=== PATIENT | female | born 1995 | race Caucasian/White ===

== ENCOUNTER 2016-09-11 18:15 | Emergency (ER) | payer MEDICAID ==
[~2016-09-11] VITALS: Ht 157.5 cm; Wt 56.5 kg
[~2016-09-11 18:15] MED LIST: MACR100C PO; POTA-243 PO; TUMS500C CHEW
[2016-09-11 18:17] VITALS: BP 134/68; PULSE 89; RESP 16; TEMP 98.6; O2SAT 99
--- NOTE | 2016-09-11 18:35 | PD ---
HPI Chief Complaint: Complaint Time Seen by Provider: 18:20 Travel History International Travel<30 days: No Contact w/Intl Traveler<30days: No Traveled to known affect area: No History of Present Illness HPI 21-year-old female 012 early confirmed by urine test as well as quantitative beta hCG per her history, menstrual period August 03, presents for evaluation of urinary hesitancy and increased urinary frequency. For the past 5 months she has had urinary frequency, vesical tenesmus issues. She reports that after urinating she still feels like she needs to urinate even when she does not have to. She is in the process of having this worked up as an outpatient when she lost her insurance. That the sensation is somewhat worse since yesterday and this prompted evaluation. She denies any dysuria, vaginal bleeding or discharge, hematuria, nausea or vomiting, flank pain, fevers or chills. She reports that she is currently in the process of establishing care with an COPY MACHINE OPERATOR for her , first appointment on September 19. No other complaints. [facility] Past Medical History Anxiety: Yes ?: LMP: 08/03/16 Social History Alcohol Use: No Tobacco Use: No (smokes approximately 5-10 cigarettes per day) Substance Use: No Allergies-Medications (Allergen,Severity, Reaction): Coded Allergies: Penicillin (Verified Allergy, Severe, throat swelling, dizziness, 09/11/16) Reported Meds & Prescriptions Reported Meds & Active Scripts Active Macrobid (Nitrofurantoin Monohydrate Macrocrystals) 100 Mg Capsule 100 Mg PO BID 7 Days Reported Gummies (Pwf054/FA/Omega3/Dha/Fish Oil) 1 Each Tab.chew 1 Tab PO DAILY Review of Systems Except as stated in HPI: all other systems reviewed are Neg Physical Exam Narrative GENERAL: Well developed well-nourished female in no acute distress SKIN: Warm and dry. HEAD: Atraumatic. Normocephalic. EYES: Pupils equal and round. No scleral icterus. No injection or drainage. ENT: No nasal bleeding or discharge. Mucous membranes pink and moist. NECK: Trachea midline. No JVD. CARDIOVASCULAR: Regular rate and rhythm. No murmur appreciated. RESPIRATORY: No accessory muscle use. Clear to auscultation. Breath sounds equal bilaterally. GASTROINTESTINAL: Abdomen soft, non-tender, nondistended. Hepatic and splenic margins not palpable. No CVA tenderness. MUSCULOSKELETAL: No obvious deformities. No edema. NEUROLOGICAL: Awake and alert. No obvious cranial nerve deficits. Motor grossly within normal limits. Normal speech. PSYCHIATRIC: Appropriate mood and affect; insight and judgment normal. Data Data Last Documented VS Vital Signs Date Time Temp Pulse Resp B/P Pulse Ox O2 Delivery O2 Flow Rate FiO2 09/11/16 18:17 98.6 89 16 134/68 99 Orders Urinalysis - C+S If Indicated (09/11/16 18:30) Labs Laboratory Tests Test 09/11/16 18:45 Urine Color LIGHT-YELLOW Urine Turbidity CLEAR Urine pH 7.0 Urine Specific [place] 1.003 Urine Protein NEG mg/dL Urine Glucose (UA) NEG mg/dL Urine Ketones NEG mg/dL Urine Occult Blood NEG Urine Nitrite NEG Urine Bilirubin NEG Urine Urobilinogen LESS THAN 2.0 MG/DL Urine Leukocyte Esterase NEG Urine RBC LESS THAN 1 /hpf Urine WBC 1 /hpf Urine Squamous Epithelial 2 /hpf Cells Urine Bacteria RARE /hpf Microscopic Urinalysis Comment CULT NOT INDICATED MDM Medical Decision Making Medical Screen Exam Complete: Yes Emergency Medical Condition: Yes Medical Record Reviewed: Yes Differential Diagnosis Cystitis, interstitial cystitis, overactive bladder syndrome, early intrauterine , bladder outlet obstruction, bladder spasm Narrative Course 21-year-old female in early presents with 5 months of urinary frequency and vesical tenesmus, worse since yesterday. Her abdomen is soft and nontender. She has no ectopic , miscarriage. She appears well. She seems to have some issue with chronic urinary hesitancy she can be further worked up on an outpatient basis through a urologist. Plan today is for urinalysis to assess for infectious process. As this is negative for infectious process, does reveal rare bacteria. Therefore the patient will be treated for bacteriuria in . Diagnosis Primary Impression: Vesical tenesmus Additional Impression: Asymptomatic bacteriuria during Referrals: Optical Element Coater Urologist Additional Instructions: Medication as prescribed. Follow-up with a urologist, COPY MACHINE OPERATOR. Return for any emergent medical conditions. Med/Other Pt SpecificInfo: Prescription(s) given Scripts Nitrofurantoin Monohydrate Macrocrystals (Macrobid)100 Mg [id number] Mg PO BID 7 Days Ref 0 Prov:Wolf Thomason MD 09/11/16 Disposition: 01 DISCHARGE HOME Condition: Stable Greg,Samson P. PA Sep 11, 2016 18:35
[2016-09-11] MEDS ORDERED: PNV11TAB PO (18:36)
[2016-09-11 19:02] LABS: BACTERIA, URINE RARE /hpf; BLOOD, URINE NEG (NEG); COMMENT (UR) CULT NOT INDICATED; CULTURE IF INDICATED CULT NOT INDICATED; GLUCOSE,URINE NEG (NEG); KETONE, URINE NEG (NEG); NITRITE,URINE NEG (NEG); SQUAMOUS EPITHELIAL CELL URINE 2 /hpf (0-5); URINE COLOR LIGHT-YELLOW (YELLW/STRAW)
[2016-09-11] MEDS ORDERED: MACR100C2 PO (19:21)
[2016-09-11 19:46] VITALS: BP 124/58; PULSE 73; RESP 18; O2SAT 100
== END 2016-09-11 19:45 | disposition home or self-care (01) ==
LOC: NEPD 18:15
DX: R30.1 Vesical tenesmus (principal); R82.71 Bacteriuria; O26.91 Pregnancy related conditions, unspecified, first trimester; Z3A.01 Less than 8 weeks gestation of pregnancy; Z72.0 Tobacco use; Z88.0 Allergy status to penicillin
CPT/HCPCS: 81001; 99283

== ENCOUNTER 2016-11-12 15:22 | Emergency (ER) | payer MEDICAID, OTHER ==
[~2016-11-12] VITALS: Ht 157.5 cm; Wt 55.0 kg
[~2016-11-12 15:22] MED LIST changes: -MACR100C PO; +MACR100C2 PO; +PNV11TAB PO; -POTA-243 PO; -TUMS500C CHEW
[2016-11-12 15:24] VITALS: BP 133/74; PULSE 92; RESP 20; TEMP 98.3; O2SAT 95
--- NOTE | 2016-11-12 15:47 | PD ---
HPI Chief Complaint: Drawer In [place]obby Loom Problem/Complaint Time Seen by Provider: 15:46 Travel History International Travel<30 days: No Contact w/Intl Traveler<30days: No Traveled to known affect area: No History of Present Illness HPI 21-year-old female, 15 weeks , presents to the emergency Department with complaint of vaginal irritation and bright yellow discharge for about 1 week. Denies vaginal itching, or lesions. Reports vaginal odor. Denies vaginal bleeding, abdominal pain, or cramping. Reports urinary hesitancy. Denies dysuria, urgency, or frequency. Denies fever, vomiting. Symptoms are mild in severity. Has not taken any medications or tried any treatments to alleviate her symptoms. Denies exposure to STD. Allergies to penicillin. Dr. Granados is hardboard panel printer. Has no medical complaints. No other modifying factors or symptoms. PFSH Past Medical History Anxiety: Yes Diminished Hearing: No Psychiatric: Yes ?: : 4 Para: 2 : 1 Social History Alcohol Use: No Tobacco Use: No (quit 2 years ago) Substance Use: No Allergies-Medications (Allergen,Severity, Reaction): Coded Allergies: Penicillin (Verified Allergy, Severe, throat swelling, dizziness, 11/12/16) Reported Meds & Prescriptions Reported Meds & Active Scripts Active Reported Gummies (Kbn511/FA/Omega3/Dha/Fish Oil) 1 Each Tab.chew 1 Tab PO DAILY Review of Systems Except as stated in HPI: all other systems reviewed are Neg Physical Exam Narrative GENERAL: Well-nourished, well-developed female female patient, in no acute distress; afebrile, nontoxic-appearing SKIN: Warm and dry. HEAD: Atraumatic. Normocephalic. EYES: Pupils equal and round. No scleral icterus. No injection or drainage. ENT: Mucous membranes pink and moist. NECK: Trachea midline. No lymphadenopathy. CARDIOVASCULAR: Regular rate and rhythm. No murmur appreciated. RESPIRATORY: No accessory muscle use. Clear to auscultation. Breath sounds equal bilaterally. GASTROINTESTINAL: Abdomen soft, non-tender, nondistended. Bilateral pelvic region nontender to palpation. Hepatic and splenic margins not palpable. No guarding, rigidity, rebound tenderness. PELVIC: Exam done in the presence of a nurse. Speculum exam reveals edematous and erythematous cervix with light yellow, mucopurulent discharge. Bimanual exam reveals no palpable masses or adnexa tenderness, no uterine tenderness. No cervical motion tenderness. BACK: No CVA tenderness. MUSCULOSKELETAL: No obvious deformities. No clubbing. No cyanosis. No edema. NEUROLOGICAL: Awake and alert. No obvious cranial nerve deficits. Motor grossly within normal limits. Normal speech. PSYCHIATRIC: Appropriate mood and affect; insight and judgment normal. Data Data Last Documented VS Vital Signs Date Time Temp Pulse Resp B/P Pulse Ox O2 Delivery O2 Flow Rate FiO2 11/12/16 15:24 98.3 92 20 133/74 95 Room Air Orders Gc And Chlamydia Pcr (11/12/16 15:48) Wet Prep Profile (11/12/16 15:48) Urinalysis - C+S If Indicated (11/12/16 15:48) Heart Tones (11/12/16 18:14) Azithromycin Powd Pack (Zithromax Powd P (11/12/16 18:15) Ceftriaxone Inj (Rocephin Inj) (11/12/16 18:15) Lidocaine 1% Inj (50 Ml) (Xylocaine 1% I (11/12/16 18:15) Labs Laboratory Tests Test 11/12/16 16:23 Urine Color COLORLESS Urine Turbidity CLEAR Urine pH 7.0 Urine Specific [place] 1.001 Urine Protein NEG mg/dL Urine Glucose (UA) NEG mg/dL Urine Ketones NEG mg/dL Urine Occult Blood NEG Urine Nitrite NEG Urine Bilirubin NEG Urine Urobilinogen LESS THAN 2.0 MG/DL Urine Leukocyte Esterase NEG Urine RBC LESS THAN 1 /hpf Urine WBC LESS THAN 1 /hpf Microscopic Urinalysis Comment CULT NOT INDICATED Clue Cells (Wet Prep) NONE SEEN Vaginal Trichomonas (Wet Prep) NONE SEEN Vaginal Yeast (Wet Prep) NONE SEEN MDM Medical Decision Making Medical Screen Exam Complete: Yes Emergency Medical Condition: Yes Medical Record Reviewed: Yes Differential Diagnosis Bacterial vaginosis, cervicitis, chlamydia, gonorrhea, vaginal yeast, UTI, cystitis Narrative Course 21-year-old female, 15 weeks , with vaginal discharge, vaginal odor, and urinary hesitancy. Denies abdominal pain, vaginal bleeding. Patient is afebrile and nontoxic appearing. She denies fever, vomiting. Dr. Granados's hardboard panel printer. 1810: Urinalysis negative. No clue cells, vaginal yeast, trichomonas seen. Chlamydia and gonorrhea pending. Patient empirically treated with azithromycin and Rocephin in the emergency department. Instructed patient to follow up with hardboard panel printer. Instructed patient to follow up with primary care provider. Patient verbalizes understanding and agreement with treatment plan. Patient is medically cleared and stable for discharge. Discussed reasons to return to the emergency department. Patient agrees with treatment plan. The patients vital signs are stable and the patient is stable for outpatient follow-up and treatment. Patient discharged home, stable and in no acute distress. Diagnosis Primary Impression: Cervicitis Referrals: [employer] Finisher Primary Care Physician Patient Instructions: Cervicitis (ED), General Instructions Additional Instructions: Avoid aggravating activity Follow-up with hardboard panel printer Follow-up with primary care provider Return to the emergency department immediately with worsening of symptoms Med/Other Pt SpecificInfo: No Meds Exist/No RX given Disposition: DISCHARGE HOME Condition: Stable Trisha Ventura Nov 12, 2016 15:47
[2016-11-12 16:34] LABS: BLOOD, URINE NEG (NEG); GLUCOSE,URINE NEG (NEG); KETONE, URINE NEG (NEG); NITRITE,URINE NEG (NEG); URINE COLOR COLORLESS (YELLW/STRAW)
[2016-11-12 16:36] LABS: COMMENT (UR) CULT NOT INDICATED; CULTURE IF INDICATED CULT NOT INDICATED
[2016-11-12] MEDS ORDERED: AZITHROMYCIN PWD FOR SUSP 1 GM PACKET PO ONE (18:15)
[2016-11-12] MEDS ORDERED: LIDOCAINE HCL 1% 50 ML VIAL IM ONE (18:15)
[2016-11-12] MEDS ORDERED: cefTRIAXone 250 MG VIAL IM ONE (18:15)
[2016-11-12 19:21] LABS: CHLAMYDIA PCR NOT DETECTED (NOT DETECT); NEISSERIA PCR NOT DETECTED (NOT DETECT)
[2017-01-04] MEDS ORDERED: TUMS500C CHEW (10:17)
[2017-01-04] MEDS ORDERED: MACR100C2 PO (10:45)
== END 2016-11-12 19:05 | disposition home or self-care (01) ==
LOC: NEPD 15:22
DX: O23.512 Infections of cervix in pregnancy, second trimester (principal); N72 Inflammatory disease of cervix uteri; O99.342 Other mental disorders complicating pregnancy, second trimester; F41.9 Anxiety disorder, unspecified; Z87.891 Personal history of nicotine dependence; Z88.0 Allergy status to penicillin; Z3A.15 15 weeks gestation of pregnancy
CPT/HCPCS: 81001; 87210; 87491; 87591; 96372; 99284; J0696

== ENCOUNTER 2017-05-21 13:14 | Emergency (ER) | payer MEDICAID ==
[~2017-05-21] VITALS: Ht 157.5 cm; Wt 54.5 kg
[~2017-05-21 13:14] MED LIST changes: +TUMS500C CHEW
[2017-05-21 13:16] VITALS: BP 137/91; PULSE 98; RESP 15; TEMP 98.4; O2SAT 98
[2017-05-21] MEDS ORDERED: PANTOPRAZOLE SOD 40 MG DELAYED RELEASE TAB PO ONE (14:00)
--- NOTE | 2017-05-21 14:01 | PD ---
HPI Chief Complaint: ENT Complaint Time Seen by Provider: 13:33 Travel History International Travel<30 days: No Contact w/Intl Traveler<30days: No Traveled to known affect area: No History of Present Illness HPI 22-year-old female who is 3 weeks with a 1-1/2 and a 2-1/2- year-old as well at home. She presents emergency department with sore throat and fullness in the base of her throat for the past 4 days. Patient was seen at [facility] and given azithromycin for presumed pharyngitis. Patient states no fever, chills, headache, upper sore throat, ear pain, or chest congestion. She does however state severe GERD which is been worse in the last couple of weeks for which she only takes Tums. Patient also complains of generalized aches and pains which come and go. She admits to being anxious. She states she is sleeping well but not eating as much as she normally would. She states the pain was so bad last evening she actually had emesis 1. She denies diarrhea or abdominal pain. Pain is currently a 4 out of 10. She is allergic to penicillin. PFSH Past Medical History Hx Anticoagulant Therapy: No Anxiety: Yes Cardiovascular Problems: No Chemotherapy: No Cerebrovascular Accident: No Diabetes: No Diminished Hearing: No Psychiatric: Yes Respiratory: No ?: Not LMP: JUST HAD A BABY 2 WEEKS AGO : 4 Para: 2 : 1 Past Surgical History Hysterectomy: No Social History Alcohol Use: No Tobacco Use: No (quit 2 years ago) Substance Use: No Allergies-Medications (Allergen,Severity, Reaction): Coded Allergies: penicillin G (Unverified Allergy, Severe, throat swelling, dizziness, 01/04) Reported Meds & Prescriptions Reported Meds & Active Scripts Active Macrobid (Nitrofurantoin Monoh/Nitrofur Macro) 100 Mg Cap 100 Mg PO BID Reported Tums (Calcium Carbonate (Antacid)) 500 Mg Chew 500 Mg CHEW PRN Gummies (Ijm257/FA/Omega3/Dha/Fish Oil) 1 Each Tab.chew 1 Tab PO DAILY Review of Systems Except as stated in HPI: all other systems reviewed are Neg General / Constitutional: No: Fever Eyes: No: Visual changes HENT: No: Headaches Cardiovascular: No: Chest Pain or Discomfort Respiratory: No: Shortness of Breath Gastrointestinal: Positive: Vomiting, Indigestion, Dysphagia, Loss of Appetite , No: Nausea, Diarrhea, Abdominal Pain Genitourinary: No: Dysuria Musculoskeletal: No: Pain Skin: No Rash Neurologic: No: Weakness Psychiatric: No: Depression Endocrine: No: Polydipsia Hematologic/Lymphatic: No: Easy Bruising Physical Exam Narrative GENERAL: Patient appears anxious, but otherwise stable SKIN: Warm and dry. Normal color. Normal turgor HEAD: Atraumatic. Normocephalic. EYES: Pupils equal and round. No scleral icterus. No injection or drainage. ENT: No nasal bleeding or discharge. Mucous membranes pink and moist. TMs are clear bilaterally. No sinus tenderness to palpation or percussion bilaterally. Posterior pharynx appears completely normal. NECK: Trachea midline. Supple and nontender without lymphadenopathy or palpable thyroid. CARDIOVASCULAR: Regular rate and rhythm. RESPIRATORY: No accessory muscle use. Clear to auscultation. Breath sounds equal bilaterally. GASTROINTESTINAL: Abdomen soft, non-tender, nondistended. Hepatic and splenic margins not palpable. MUSCULOSKELETAL: Extremities without clubbing, cyanosis, or edema. No obvious deformities. NEUROLOGICAL: Awake and alert. No obvious cranial nerve deficits. Motor grossly within normal limits. Five out of 5 muscle strength in the arms and legs. Normal speech. PSYCHIATRIC: Appropriate mood and affect; insight and judgment normal. Data Data Last Documented VS Vital Signs Date Time Temp Pulse Resp B/P (MAP) Pulse Ox O2 Delivery O2 Flow Rate FiO2 05/21/17 13:16 98.4 98 15 137/91 (106) 98 Orders Orders Pantoprazole (Protonix) (05/21/17 14:00) [facility] Medical Decision Making Medical Screen Exam Complete: Yes Emergency Medical Condition: Yes Differential Diagnosis . Anxiety. Stress. Reflux. Reflux induced pharyngitis. Narrative Course Patient is felt to have reflux induced pharyngitis. Patient is given her first dose of pantoprazole 40 mg p.o. now Patient continued on omeprazole 40 mg daily #30. Patient can take Tums intermittently as needed for reflux symptoms Patient should follow-up with her primary care physician as discussed Diagnosis Primary Impression: Reflux pharyngitis Referrals: Primary Care Physician Patient Instructions: Diet for Stomach Ulcers and Gastritis (ED), General Instructions Additional Instructions: Patient is felt to have reflux induced pharyngitis. Patient is given her first dose of pantoprazole 40 mg p.o. now Patient continued on omeprazole 40 mg daily #30. Patient can take Tums intermittently as needed for reflux symptoms Patient should follow-up with her primary care physician as discussed Med/Other Pt SpecificInfo: Prescription(s) given Disposition: 01 DISCHARGE HOME Condition: Stable Steve Riley May 21, 2017 14:01
[2017-05-21] MEDS ORDERED: OMEP40CA2 PO (14:02)
== END 2017-05-21 14:36 | disposition home or self-care (01) ==
LOC: NEPK 13:14
DX: J02.9 Acute pharyngitis, unspecified (principal); K21.9 Gastro-esophageal reflux disease without esophagitis; Z87.891 Personal history of nicotine dependence
CPT/HCPCS: 99283

== ENCOUNTER 2017-05-26 14:29 | Emergency (ER) | payer MEDICAID ==
[~2017-05-26] VITALS: Ht 157.5 cm; Wt 52.5 kg
[~2017-05-26 14:29] MED LIST changes: +OMEP40CA2 PO
[2017-05-26 14:30] VITALS: BP 145/96; PULSE 92; RESP 18; TEMP 99.1; O2SAT 100
--- NOTE | 2017-05-26 15:20 | RADRPT ---
EXAM DATE/TIME: 05/26/2017 15:11 [place] COMPARISON: CHEST SINGLE AP, November 09, 2015, 0:04. INDICATIONS : Irregular heart rate for 4 days MEDICAL HISTORY : None. SURGICAL HISTORY : None. ENCOUNTER: Initial ACUITY: 4 - 6 days PAIN SCORE: 0/10 LOCATION: Bilateral chest FINDINGS: PA and lateral views of the chest demonstrate the lungs to be symmetrically aerated without evidence of mass, infiltrate or effusion. The cardiomediastinal contours are unremarkable. Osseous structure s are intact. CONCLUSION: No acute disease. John Salazar MD on May 26, 2017 at 15:18 Board Certified Radiologist. This report was verified electronically.
== END 2017-05-26 17:36 | disposition left against medical advice (07) ==
LOC: NED 14:29
DX: R03.0 Elevated blood-pressure reading, without diagnosis of hypertension (principal); Z53.21 Procedure and treatment not carried out due to patient leaving prior to being seen by health care provider
CPT/HCPCS: 71046; 99281

== ENCOUNTER 2017-05-29 13:56 | Emergency (ER) | payer MEDICAID ==
[2017-05-29 13:59] VITALS: BP 162/92; PULSE 91; RESP 18; TEMP 98.2; O2SAT 99
[2017-05-29] MEDS ORDERED: CELE10TA PO (14:13)
[2017-05-29 14:34] LABS: AUTOMATED NEUTROPHIL # 5.2 TH/MM3 (1.8-7.7); BASOPHIL # 0.1 TH/MM3 (0-0.2); BASOPHIL % 0.5 % (0.0-2.0); EOSINOPHIL # 0.1 TH/MM3 (0-0.4); EOSINOPHIL % 1.4 % (0.0-4.0); HEMATOCRIT 37.6 % (35.0-46.0); HEMOGLOBIN 12.6 GM/DL (11.6-15.3); LYMPH % 36.8 % (9.0-44.0); LYMPHOCYTE # 3.5 TH/MM3 (1.0-4.8); MEAN CORPUSCULAR HEMOGLOBIN 29.7 PG (27.0-34.0); MEAN CORPUSCULAR HGB CONC 33.4 % (32.0-36.0); MEAN PLATELET VOLUME 7.8 FL (7.0-11.0); MONO % 6.9 % (0.0-8.0); MONOCYTE # 0.7 TH/MM3 (0-0.9); NEUT % 54.4 % (16.0-70.0); PLATELET COUNT 443 TH/MM3 (150-450); RED BLOOD COUNT 4.22 MIL/MM3 (4.00-5.30); RED CELL DISTRIBUTION WIDTH 15.5 % (11.6-17.2); WHITE BLOOD COUNT 9.5 TH/MM3 (4.0-11.0)
[2017-05-29] MEDS: LORazepam 1 MG TAB PO ONE ×2 (14:45→14:52)
--- NOTE | 2017-05-29 14:48 | PD ---
HPI Chief Complaint: Anxiety Time Seen by Provider: 14:20 Travel History International Travel<30 days: No Contact w/Intl Traveler<30days: No Traveled to known affect area: No History of Present Illness HPI 22-year-old female with history of anxiety presents to the emergency room for evaluation of depression and anxiety that has been especially severe over the past 1.5 weeks. She is one-month . States she had anxiety prior to being but for the past 1-1/2 weeks she has been unable to eat or sleep because she feels like her heart is not working properly. Patient states she feels like her heart slows down and it makes her extremely anxious. Then the anxiety makes her heart feel like it is racing. She has been to the hospital 5 times in the past 1.5 weeks and had 5 normal EKGs, 3 normal x-rays, and multiple normal labs. She just started Celexa prescribed by her CREW SUPERVISOR 3 days ago. Patient is hyper-focused on her symptoms and crying during exam. PFSH Past Medical History Hx Anticoagulant Therapy: No Anxiety: Yes Cardiovascular Problems: No Chemotherapy: No Cerebrovascular Accident: No Diabetes: No Diminished Hearing: No Psychiatric: Yes Respiratory: No Tetanus Vaccination: < 5 Years Influenza Vaccination: No ?: Not : 4 Para: 3 : 1 Past Surgical History Hysterectomy: No Social History Alcohol Use: No Tobacco Use: No (quit 2 years ago) Substance Use: No Allergies-Medications (Allergen,Severity, Reaction): Coded Allergies: penicillin G (Unverified Allergy, Severe, throat swelling, dizziness, 05/29) Reported Meds & Prescriptions Reported Meds & Active Scripts Active Vistaril (Hydroxyzine Pamoate) 50 Mg Cap 50 Mg PO Q8HR Reported Celexa (Citalopram Hydrobromide) 10 Mg Tab 10 Mg PO DAILY Tums (Calcium Carbonate (Antacid)) 500 Mg Chew 500 Mg CHEW PRN Review of Systems Except as stated in HPI: all other systems reviewed are Neg Physical Exam Narrative GENERAL: Well-nourished, well-developed female no acute distress. Afebrile. Ambulatory. SKIN: Focused skin assessment warm/dry. HEAD: Normocephalic. EYES: No scleral icterus. No injection or drainage. NECK: Supple, trachea midline. No JVD or lymphadenopathy. CARDIOVASCULAR: Regular rate and rhythm without murmurs, gallops, or rubs. RESPIRATORY: Breath sounds equal bilaterally. No accessory muscle use. PSYCHIATRIC: No delusional thought processes. No hallucinations. Patient is crying and extremely anxious on exam. Data Data Last Documented VS Vital Signs Date Time Temp Pulse Resp B/P (MAP) Pulse Ox O2 Delivery O2 Flow Rate FiO2 05/29/17 18:08 81 18 146/91 (109) 99 Room Air 05/29/17 13:59 98.2 Orders Orders Complete Blood Count With Diff (05/29/17 14:01) Thyroid Stimulating Hormone (05/29/17 14:01) Basic Metabolic Panel (Bmp) (05/29/17 14:01) Urinalysis - C+S If Indicated (05/29/17 14:01) Ed Urine Pregnancytest Poc (05/29/17 14:01) Psych Screen (05/29/17 14:01) Drug Screen, Random Urine (05/29/17 14:01) Alcohol (Ethanol) (05/29/17 14:01) Lorazepam (Ativan) (05/29/17 14:45) Lorazepam (Ativan) (05/29/17 15:00) Potassium Chloride (Kcl) (05/29/17 15:45) Urine Culture (05/29/17 15:53) Ed Discharge Order (05/29/17 18:33) Labs Laboratory Tests Test 05/29/17 14:25 05/29/17 15:53 White Blood Count 9.5 TH/MM3 Red Blood Count 4.22 MIL/MM3 Hemoglobin 12.6 GM/DL Hematocrit 37.6 % Mean Corpuscular Volume 89.0 FL Mean Corpuscular Hemoglobin 29.7 PG Mean Corpuscular Hemoglobin Concent 33.4 % Red Cell Distribution Width 15.5 % Platelet Count 443 TH/MM3 Mean Platelet Volume 7.8 FL Neutrophils (%) (Auto) 54.4 % Lymphocytes (%) (Auto) 36.8 % Monocytes (%) (Auto) 6.9 % Eosinophils (%) (Auto) 1.4 % Basophils (%) (Auto) 0.5 % Neutrophils # (Auto) 5.2 TH/MM3 Lymphocytes # (Auto) 3.5 TH/MM3 Monocytes # (Auto) 0.7 TH/MM3 Eosinophils # (Auto) 0.1 TH/MM3 Basophils # (Auto) 0.1 TH/MM3 CBC Comment DIFF FINAL Differential Comment Blood Urea Nitrogen 6 MG/DL Creatinine 1.00 MG/DL Random Glucose 164 MG/DL Calcium Level 9.3 MG/DL Sodium Level 137 MEQ/L Potassium Level 3.0 MEQ/L Chloride Level 106 MEQ/L Carbon Dioxide Level 21.7 MEQ/L Anion Gap 9 MEQ/L Estimat Glomerular Filtration Rate 69 ML/MIN Thyroid Stimulating Hormone 3rd Gen 1.010 uIU/ML Ethyl Alcohol Level LESS THAN 3 MG/DL Urine Color LIGHT-YELLOW Urine Turbidity HAZY Urine pH 7.0 Urine Specific [place] 1.003 Urine Protein NEG mg/dL Urine Glucose (UA) NEG mg/dL Urine Ketones NEG mg/dL Urine Occult Blood TRACE Urine Nitrite NEG Urine Bilirubin NEG Urine Urobilinogen LESS THAN 2.0 MG/DL Urine Leukocyte Esterase LARGE Urine RBC 10 /hpf Urine WBC 49 /hpf Urine Squamous Epithelial Cells 14 /hpf Urine Bacteria MOD /hpf Microscopic Urinalysis Comment CULTURE INDICATED Urine Opiates Screen NEG Urine Barbiturates Screen NEG Urine Amphetamines Screen NEG Urine Benzodiazepines Screen NEG Urine Cocaine Screen NEG Urine Cannabinoids Screen NEG MDM Medical Decision Making Medical Screen Exam Complete: Yes Emergency Medical Condition: Yes Medical Record Reviewed: Yes Differential Diagnosis Anxiety, depression, medication side effect Narrative Course 22-year-old otherwise healthy female presents to the emergency room for evaluation of anxiety that has been especially severe over the past 1.5 weeks. She was referred here by her CREW SUPERVISOR, Dr. Clemons, after she reported symptoms to him today. He started her on Celexa a few days ago. Patient is well-appearing in the emergency room. Vital signs stable. Resting comfortably in bed. Patient complains she is extremely anxious and crying on exam. She has had 5 EKGs, 3 chest x-rays, and multiple lab draws over the past week from multiple different facilities which have all come back unremarkable. Patient states her symptoms always improve with Ativan. She was given 1 mg of Ativan but then requested 0.5 mg instead. After Ativan, she felt better. Mental health screening discussed with the patient. Psychiatric screener evaluated the patient and recommended outpatient follow-up. It was revealed the Celexa can cause many of her symptoms. She denies suicidal or homicidal ideation. Denies desire to hurt herself or her baby. I spoke to my attending physician, Dr. Carver , who recommends basic labs but no EKG or chest x-ray. Seeing as patient has had multiple normal chest x-rays in the past week, she will not be exposed to further radiation. Her symptoms are secondary to anxiety. Discharged with prescription for Vistaril and told to follow-up with the physician who prescribed her Celexa or return for worsening symptoms. She understands and agrees to plan. Diagnosis Primary Impression: Anxiety Referrals: [facility] (Out patient) Primary Care Physician Additional Instructions: Vistaril as directed, as needed for anxiety. Follow-up with whoever prescribed Celexa. Return to the emergency room for worsening symptoms. Scripts Hydroxyzine Pamoate (Vistaril) 50 Mg Cap 50 MG PO Q8HR, #15 CAP 0 Refills Prov: Jose Carver MD 05/29/17 Disposition: 01 DISCHARGE HOME Condition: Stable Odilia Rdz May 29, 2017 14:48
[2017-05-29 14:52] LABS: BICARBONATE 21.7 MEQ/L (21.0-32.0); BLOOD UREA NITROGEN 6 MG/DL (7-18); CALCIUM 9.3 MG/DL (8.5-10.1); CHLORIDE 106 MEQ/L (98-107); GLOMERULAR FILTRATION RATE 69 ML/MIN (>89); GLUCOSE,RANDOM 164 MG/DL (74-106); SODIUM (NA) 137 MEQ/L (136-145)
[2017-05-29] MEDS ORDERED: LORazepam 0.5 MG TAB PO ONE (15:00)
[2017-05-29] MEDS ORDERED: POTASSIUM CHLORIDE 20 MEQ CONTROLLED RELEASE TAB PO ONE (15:45)
[2017-05-29 16:24] LABS: BACTERIA, URINE MOD /hpf; BILIRUBIN, URINE NEG (NEG); BLOOD, URINE TRACE (NEG); GLUCOSE,URINE NEG (NEG); KETONE, URINE NEG (NEG); NITRITE,URINE NEG (NEG); SQUAMOUS EPITHELIAL CELL URINE 14 /hpf (0-5); URINE COLOR LIGHT-YELLOW (YELLW/STRAW); URINE LEUKOCYTE ESTERASE LARGE (NEG)
[2017-05-29 18:08] VITALS: BP 146/91; PULSE 81; RESP 18; O2SAT 99
[2017-05-29] MEDS ORDERED: VIST50CA PO (18:30)
== END 2017-05-29 18:48 | disposition home or self-care (01) ==
LOC: NEPD 13:56
DX: F41.9 Anxiety disorder, unspecified (principal); F32.9 Major depressive disorder, single episode, unspecified; Z79.899 Other long term (current) drug therapy
CPT/HCPCS: 80048; 80307; 81001; 84443; 84703; 85025; 87086; 99283

== ENCOUNTER 2017-08-17 11:54 | Emergency (ER) | END 2017-08-17 13:25 | disposition home or self-care (01) | DX: L03.211 Cellulitis of face (principal) ==